=== PATIENT | female | born 1960 ===

== ENCOUNTER 2021-03-16 15:30 | Outpatient (CLI) | payer OTHER | END 2021-03-16 15:31 | disposition home or self-care (01) | LOC: BICCT 15:30 | PROVIDERS: ATTEND Family Medicine | DX: S33.5XXD Sprain of ligaments of lumbar spine, subsequent encounter (principal); S23.3XXD Sprain of ligaments of thoracic spine, subsequent encounter; S30.0XXD Contusion of lower back and pelvis, subsequent encounter; S32.2XXA Fracture of coccyx, initial encounter for closed fracture | CPT/HCPCS: 72192 ==